=== PATIENT | female | born 1960 | race Caucasian/White ===

== ENCOUNTER 2016-07-26 03:05 | Emergency (ER) | payer OTHER ==
[2016-07-26 04:51] LABS: HCT 32.7 % (37.0-47.0); HGB 10.7 g/dl (12.5-16.0); MCV 83.6 fL (78.0-100.0); RBC 3.91 M/uL (4.20-5.40); WBC 4.6 K/uL (4.0-10.5)
[2016-07-26 04:52] LABS: MCH 27.4 pg (25.0-31.0); MCHC 32.7 g/dL (32.0-36.0); PLT 333 K/uL (150-400)
[2016-07-26 05:07] LABS: CREATININE 0.8 mg/dL (0.5-1.0); POTASSIUM 4.4 mmol/L (3.5-5.1)
== END 2016-07-26 05:29 | disposition home or self-care (01) ==
LOC: FER 03:05
PROVIDERS: Emergency Medicine
DX: I96 Gangrene, not elsewhere classified (principal); E78.5 Hyperlipidemia, unspecified; Z79.899 Other long term (current) drug therapy; Z87.19 Personal history of other diseases of the digestive system; Z85.118 Personal history of other malignant neoplasm of bronchus and lung; Z90.2 Acquired absence of lung [part of]
CPT/HCPCS: 36415; 73630; 80048; 85651; 86140; J1885